=== PATIENT | female | born 1965 | race Two or more races ===

== ENCOUNTER 2020-05-10 12:47 | Emergency (ER) | payer MEDICAID, OTHER ==
[~2020-05-10] VITALS: Ht 160 cm; Wt 78.9 kg
[2020-05-10 13:30] VITALS: BP 130/62
== END 2020-05-10 13:59 | disposition home or self-care (01) ==
LOC: ER 12:47
DX: S80.11XA Contusion of right lower leg, initial encounter (principal); M19.90 Unspecified osteoarthritis, unspecified site; X58.XXXA Exposure to other specified factors, initial encounter; Y93.89 Activity, other specified; Y92.89 Other specified places as the place of occurrence of the external cause; Y99.8 Other external cause status
CPT/HCPCS: 93971